=== PATIENT | female | born 1970 | race Two or more races ===

== ENCOUNTER 2023-02-11 11:05 | Emergency (ER) | payer MEDICARE, BC, OTHER ==
[~2023-02-11] VITALS: Ht 162.6 cm; Wt 54.4 kg
--- NOTE | 2023-02-11 11:29 | NUR ---
PT IN BED 6, HAS ALS BEGAN TO CHOKE ON PUREED OATMEAL THIS MORNING. LUNG FEILDS ARE CLEAR O2 SAT 99% BREATHING IS EVEN AND UNLABORED AT THIS MOMENT. NO REPORTING ANY DISTRESS OR PAIN. VITAL SIGNS WNL.
--- NOTE | 2023-02-11 13:37 | NUR ---
Patient discharged to home in stable condition. Written and verbal after care instructions given. Patient verbalizes understanding of instruction.
[2023-02-11 13:39] VITALS: BP 104/68
== END 2023-02-11 13:40 | disposition home or self-care (01) ==
LOC: ER 11:56
DX: T17.928A Food in respiratory tract, part unspecified causing other injury, initial encounter (principal); X58.XXXA Exposure to other specified factors, initial encounter; Y93.89 Activity, other specified; Y92.89 Other specified places as the place of occurrence of the external cause; Y99.8 Other external cause status
CPT/HCPCS: 71045-TC

== ENCOUNTER 2023-03-01 08:22 | Emergency (ER) | payer MEDICARE, BC, OTHER ==
[~2023-03-01] VITALS: Ht 167.6 cm; Wt 41.3 kg
[2023-03-01] MEDS ORDERED: DIATR MEGLU/DIATRIZOATE SODIUM 30 ML BOTTLE (GASTROGRAPHIN) ONE (08:51)
[2023-03-01] MEDS ORDERED: DIATR MEGLU/DIATRIZOATE SODIUM 30 ML BOTTLE (GASTROGRAPHIN) PO ONE (09:00)
--- NOTE | 2023-03-01 09:30 | NUR ---
PATIENT BIBA FOR G-TUBE REPLACEMENT. PATIENT HAD PULLED OUT G-TUBE AT HOME PER CAREGIVER. PATIENT NOT ABLE TO PROVIDE HISTORY DUE TO CONFUSION PER BASELINE. CAREGIVER AT BEDSIDE. TOLERATING WELL ON ROOM AIR.
--- NOTE | 2023-03-01 10:00 | NUR ---
G-TUBE REPLACED BY , PLACEMENT CONFIRMED BY X-RAY
--- NOTE | 2023-03-01 10:35 | NUR ---
IAN CLAY [phone] CAREGIVER.
[2023-03-01 11:35] VITALS: BP 100/54
--- NOTE | 2023-03-01 11:35 | NUR ---
Patient discharged to home in stable condition. Written and verbal after care instructions given. Patient caregiver verbalizes understanding of instruction.
== END 2023-03-01 11:35 | disposition home or self-care (01) ==
LOC: ER 08:24
DX: K94.23 Gastrostomy malfunction (principal)
CPT/HCPCS: 99284; 43762; 74018; Q9963 ×2

== ENCOUNTER 2023-05-27 16:02 | Emergency (ER) | payer MEDICARE, BC, OTHER ==
[~2023-05-27] VITALS: Ht 170.2 cm; Wt 49.4 kg
[2023-05-27] MEDS ORDERED: ACETAMINOPHEN ES 500 MG TABLET PO ONE (17:00)
[2023-05-27] MEDS ORDERED: ACETAMINOPHEN ES 500 MG TABLET ONE (17:19)
[2023-05-27 17:49] VITALS: BP 131/81; TEMP 97.8; O2SAT 98
== END 2023-05-27 17:50 | disposition home or self-care (01) ==
LOC: ER 16:21
DX: S00.83XA Contusion of other part of head, initial encounter (principal); S60.221A Contusion of right hand, initial encounter; W01.0XXA Fall on same level from slipping, tripping and stumbling without subsequent striking against object, initial encounter; Y93.89 Activity, other specified; Y92.89 Other specified places as the place of occurrence of the external cause; Y99.8 Other external cause status
CPT/HCPCS: 70450-TC; 73130-TC

== ENCOUNTER 2023-08-30 09:23 | Inpatient (IN) | payer MEDICARE, BC, OTHER ==
[2023-08-30] VITALS (8 sets, daily range): BP systolic 113–117; BP diastolic 74–80; TEMP 97.9–98.1; O2SAT 93–100
[~2023-08-30] VITALS: Ht 162.6 cm; Wt 48.1 kg
[2023-08-30] MEDS ORDERED: ACETAMINOPHEN 650 MG/SUPP.RECT RC ONE ×2 (09:36→10:00)
[2023-08-30] MEDS ORDERED: PIPERACI/TAZO 3.375GM/D5W 50ML PB IV ONE (09:49)
[2023-08-30] MEDS ORDERED: IV NS 0.9% 1,000 ML BAG IV ONE (10:00)
[2023-08-30] MEDS ORDERED: VANCOMYCIN 1 GM in IV D5W 250 ML IV ONE (10:00)
[2023-08-30] MEDS ORDERED: AZITHROMYCIN 500 MG in IV D5W 250 ML IV ONE (10:00)
[2023-08-30] MEDS ORDERED: PIPERACILLIN /TAZOBACTAM 3.375 G in IV D5W 50 ML IV ONE (10:00)
[2023-08-30 10:06] LABS: CALCIUM, SERUM 9.5 mg/dL (8.5-10.1); CARBON DIOXIDE 30 mmol/L (21-32); CHLORIDE 101 mmol/L (98-107); CREATININE 0.5 mg/dL (0.6-1.3); GLUCOSE 151 mg/dL (74-106); POTASSIUM 4.1 mmol/L (3.5-5.1); SODIUM SERUM 138 mmol/L (136-145); UREA NITROGEN, BLOOD 21 mg/dL (7-18)
[2023-08-30 10:16] LABS: LACTIC ACID 2.7 mmol/L (0.4-2.0)
[2023-08-30 10:19] LABS: ALANINE AMINOTRANSFERASE 70 U/L (12-78); ALBUMIN 2.9 g/dL (3.4-5.0); ALKALINE PHOSPHATASE 149 U/L (46-116); ASPARTATE AMINOTRANSFERASE 44 U/L (15-37); BILIRUBIN,TOTAL 0.3 mg/dL (0.2-1.0); NT-PRO BNP 413 pg/mL (0-125); TOTAL PROTEIN, SERUM 8.2 g/dL (6.4-8.2)
[2023-08-30 10:25] LABS: INR 1.05 (0.91-1.10); PROTHROMBIN TIME 11.1 SECS (9.2-11.1)
[2023-08-30] MEDS ORDERED: LORA-259 GT (10:25)
[2023-08-30] MEDS ORDERED: ISOSOURCE GT (10:25)
[2023-08-30] MEDS ORDERED: APIX5TAB GT (10:25)
[2023-08-30] MEDS ORDERED: BISA10SU11 RC (10:25)
[2023-08-30] MEDS ORDERED: NA P133E RC (10:25)
[2023-08-30] MEDS ORDERED: MELA3TAB41 GT (10:25)
[2023-08-30] MEDS ORDERED: CHLO473M5 MM (10:25)
[2023-08-30] MEDS ORDERED: IPRA4AER IH (10:25)
[2023-08-30] MEDS ORDERED: BLISTEX LIP BALM TP (10:25)
[2023-08-30] MEDS ORDERED: ACET-2605 GT (10:26)
[2023-08-30] MEDS ORDERED: RILU50TA4 GT (10:26)
[2023-08-30] MEDS ORDERED: ACET-868 GT (10:26)
[2023-08-30] MEDS ORDERED: QUET50TA GT (10:26)
[2023-08-30] MEDS ORDERED: SODI100037 GT (10:26)
[2023-08-30] MEDS ORDERED: SERT100T GT (10:26)
[2023-08-30] MEDS ORDERED: GLYC2TAB21 GT (10:26)
[2023-08-30] MEDS ORDERED: POLY17PO4 GT (10:26)
[2023-08-30] MEDS ORDERED: FAMO-131 GT (10:26)
[2023-08-30] MEDS ORDERED: MAGN400O6 GT (10:26)
[2023-08-30] MEDS ORDERED: PROP10TA10 GT (10:26)
[2023-08-30 10:28] LABS: BILIRUBIN,DIRECT 0.1 mg/dL (0.0-0.2)
[2023-08-30] MEDS ORDERED: ONDANSETRON HCL/PF 4 MG/2 ML VIAL IVP PRN (10:30)
[2023-08-30] MEDS ORDERED: MAGNESIUM HYDROXIDE 30 ML UDC PO PRN (10:30)
[2023-08-30] MEDS ORDERED: IV NS 0.9% 1,000 ML IV PRN (10:30)
[2023-08-30] MEDS ORDERED: MAG HYDROX/AL HYDROX/SIMETH 30 ML UDC PO PRN (10:30)
[2023-08-30] MEDS ORDERED: ACETAMINOPHEN 325 MG TABLET PO PRN (10:30)
[2023-08-30] MEDS ORDERED: Z GUARD REMEDY 4 OZ OINT TP PRN (10:30)
[2023-08-30 11:13] LABS: BASOPHILS % (AUTO) 0.1 % (0.0-2.0); EOSINOPHILS % (AUTO) 0.1 % (0.0-6.0); HEMATOCRIT 36 % (33-45); HEMOGLOBIN 11.4 g/dL (11.5-14.8); LYMPHOCYTES # (AUTO) 0.8 K/uL (0.8-4.8); LYMPHOCYTES % (AUTO) 4.7 % (20.0-44.0); MEAN CORPUSCULAR HEMOGLOBIN 28 PG (26.0-33.0); MEAN CORPUSCULAR HGB CONC 32 g/dl (31.0-36.0); MEAN CORPUSCULAR VOLUME 86 fL (82-100); MONOCYTES # (AUTO) 0.9 K/uL (0.1-1.30); MONOCYTES % (AUTO) 5.2 % (2.0-12.0); NEUTROPHILS # (AUTO) 15.3 K/uL (1.8-8.9); NEUTROPHILS % (AUTO) 89.9 % (43.0-81.0); PLATELET COUNT (AUTO) 485 K/uL (150-450); RED BLOOD CELL COUNT(AUTO) 4.13 MIL/uL (4.0-5.2); RED CELL DISTRIBUTION WIDTH 17.3 % (11.5-15.0)
[2023-08-30] MEDS: ACETYLCYSTEINE 10% SOLN 400 MG/4 ML VIAL NEB SCH ×2 (13:30→15:46)
[2023-08-30] MEDS ORDERED: IPRATROPIUM NEB FS 0.5 MG/2.5 ML AMPUL.NEB NEB SCH (13:30)
[2023-08-30] MEDS ORDERED: APIXABAN 5 MG TABLET PO SCH (17:00)
[2023-08-30] MEDS ORDERED: ZOSYN IVPB 3.375 G in IV D5W 50ml IV SCH (17:00)
[2023-08-30] MEDS ORDERED: VANCOMYCIN HCL 0.75 GM in IV D5W 250 ML IV SCH (20:00)
== END 2023-08-30 17:53 | DRG 871 ==
LOC: ER 09:24 → TELE1 11:13 → TELE-TD 12:28
PROVIDERS: ADMIT Internal Medicine; ATTEND Internal Medicine
DX: A41.9 Sepsis, unspecified organism (principal); E43 Unspecified severe protein-calorie malnutrition; J96.21 Acute and chronic respiratory failure with hypoxia; G93.41 Metabolic encephalopathy; J69.0 Pneumonitis due to inhalation of food and vomit; G12.21 Amyotrophic lateral sclerosis; D68.59 Other primary thrombophilia; R13.10 Dysphagia, unspecified; Z66 Do not resuscitate; Z93.1 Gastrostomy status; Z79.51 Long term (current) use of inhaled steroids; Z79.899 Other long term (current) drug therapy; Z93.0 Tracheostomy status; Z79.01 Long term (current) use of anticoagulants; S81.802A Unspecified open wound, left lower leg, initial encounter; S81.801A Unspecified open wound, right lower leg, initial encounter; X58.XXXA Exposure to other specified factors, initial encounter; Y92.9 Unspecified place or not applicable; E88.09 Other disorders of plasma-protein metabolism, not elsewhere classified; Z74.09 Other reduced mobility
CPT/HCPCS: 31720; 36415; 71045-TC; 80048-TC; 80076-TC; 83605-TC; 83880; 84484-TC; 85025-TC; 85730-TC; 87040-TC; 94640-TC; 94799-TC; A4223; A4623; C9803; G0378; J0456; J2543; J3370; J7030; J7060